=== PATIENT | male | born 2000 | race Caucasian/White ===

== ENCOUNTER 2021-07-05 20:50 | Emergency (ER) | payer SELFPAY ==
[~2021-07-05] VITALS: Ht 193 cm; Wt 90.7 kg
[2021-07-05 20:52] VITALS: BP 145/78
== END 2021-07-05 22:10 | disposition home or self-care (01) ==
LOC: ER 20:50
DX: R07.89 Other chest pain (principal)
CPT/HCPCS: 71046; 93005

== ENCOUNTER 2022-06-30 05:36 | Emergency (ER) | payer SELFPAY ==
[~2022-06-30] VITALS: Ht 193 cm; Wt 94.9 kg
[2022-06-30] MEDS ORDERED: CARBAMIDE PEROXIDE 6.5% OTIC(EAR) SOLN 15ML RIGHT EAR ONE (06:45)
[2022-06-30 07:21] VITALS: BP 108/71
[2022-06-30] MEDS ORDERED: COROSUS RIGHT EAR (08:20)
[2022-06-30] MEDS ORDERED: IBUP800T26 PO (08:20)
== END 2022-06-30 08:20 | disposition home or self-care (01) ==
LOC: ER 05:36
DX: H61.21 Impacted cerumen, right ear (principal); H60.91 Unspecified otitis externa, right ear; Z87.891 Personal history of nicotine dependence